=== PATIENT | male | born 1950 | race Caucasian/White ===

== ENCOUNTER → 2017-01-03 | Outpatient (CLI) | payer MEDICARE ==
[~2017-01-03] MED LIST: ACET-749 PO; CLC100 PO; DTR5 PO; LISI-788 PO; LOSA100T65 PO; METO25TA3 PO; MRLP17 PO; PARO20TA PO; VITAMIN D3 PO
== END | disposition home or self-care (01) ==
LOC: C.LABPBG 10:16
PROVIDERS: ATTEND Urology
DX: C61 Malignant neoplasm of prostate (principal)

== ENCOUNTER 2022-02-02 23:50 | Inpatient (IN) ==
--- NOTE | 2022-02-03 00:39 | Emergency Department Note ---
Impression & Plan Acute GI bleeding, [facility] NAME: DOREEN HALE AGE: 71 SEX: M ARRIVES VIA: Walk-In INFORMANT: Patient ED PROVIDER(S): Anayeli Leone DO CHIEF COMPLAINT: Dark stools; dizziness PLAN: Disposition: Admit to hospitalist Condition: Guarded MEDICAL DECISION MAKING: This is a 71-year-old male patient who developed dizziness upon standing and noted he had dark-colored stools. [facility] He had a significant bowel movement that was dark black in color. He was found to be anemic with a hemoglobin of 7.4. BUN was significantly elevated. Patient was bolused with IV normal saline solution and typed and crossed for 2 units of packed red blood cells. Patient's last colonoscopy was 5 years ago. He does have a history of diverticulitis but no other findings according to the patient. [facility] Nursing notes reviewed and agree with them. Vital Signs: reviewed and remarkable for hypotension Differential diagnosis: Upper GI bleeding; anemia; orthostatic hypotension ER treatment provided: IV normal saline bolus IV packed red blood cell transfusion Diagnostics interpreted by me: ECG: Normal sinus rhythm at a rate of 71 with flattened T waves in the inferior and lateral leads Cardiac Monitoring: Normal sinus rhythm at 70 Laboratory studies: See below HPI: 71/M arrives for evaluation of dizziness. Patient developed constipation earlier in the week for which he took stool softeners and Dulcolax. He finally had a bowel movement today which was dark in color. He also began to notice some dizziness upon standing. Patient had an episode of dark-colored stools approximately 3 years ago for which she did not seek medical treatment. He had a colonoscopy approximately 5 years ago but it was limited secondary to diverticulitis. ROS: See above HPI for pertinent positives & negatives. A total of 10 systems reviewed and were otherwise negative. PAST MEDICAL HISTORY:Hypertension, prostate cancer status post prostatectomy; diverticulitis PAST SURGICAL HISTORY:See Below FAMILY HISTORY:See Below SOCIAL HISTORY:Patient is HOME MEDICATIONS:See list ALLERGIES:None VITALS:See Below PHYSICAL EXAMINATION: HEENT: Head - normocephalic and atraumatic. Pupils are equal, round, and reactive to light. Extraocular eye muscles are intact, and sclera are anicteric. Nose - moist nasal mucosa without discharge. Mouth - moist buccal mucosa. Oropharynx is nonerythematous and there is no tonsillar exudate or edema noted. Neck: Supple; no cervical lymphadenopathy Heart: Regular rate and rhythm. There is a normal S1 and S2 with no murmurs, clicks, or gallops appreciated. Lungs: Clear to auscultation bilaterally with no wheezes, rales, or rhonchi. Abdomen: Soft, completely nontender, nondistended, with good bowel sounds. There are no palpable pulsatile masses or hepatosplenomegaly. There is no guarding, rigidity, or rebound noted. Extremities: No evidence of cyanosis, clubbing, or edema. There are easily palpable peripheral pulses. Skin: Pale, warm and dry with good turgor and no rashes. ED COURSE: Times/Reassessments: 0020: Patient was evaluated in room C1. A complete history and physical was performed. An IV lock was initiated and labs were drawn as above. An order was placed for continuous cardiac monitoring. The patient was in a normal sinus rhythm at a rate of 70. Patient was bolused with normal saline solution Patient was typed and crossed for 2 units of packed red blood cells. I discussed the case with the [facility] Hospitalist. Anayeli Leone DO Past Med/Surg History Medical History (Updated 02/03/22 @ 06:37 by Anayeli Leone DO) Depression Full code status GI bleed Hyperlipidemia Hypertension Social History Smoking Status: Former smoker Second Hand Exposure: No; Do You Dip or Chew Tobacco: Yes; Hx Substance Use: No Communication Ability: Effective Assurance Services Manager Health Care Required: No Beliefs That Will Affect Care: None Current Living Situation: Spouse and Family Feels Safe at Home: No Is there a partner from a previous relationship who is making you feel unsafe now?: No Any Concerns about Your Family Situation: No Would You Like to Speak to Someone About Your Situation: No Safety Concerns: Feels Safe At This Time Allergies Allergies Allergy/AdvReac Type Severity Reaction Status Date / Time No Known Allergies Allergy Unverified 11/02/15 05:54 Home Meds Home Medications Medication Instructions Recorded Confirmed LOSARTAN POTASSIUM (COZAAR) 100 mg PO QAM #0 tabs 10/18/15 02/03/22 PAROXETINE HCL (PAXIL) 20 mg PO QAM #0 tabs 10/18/15 02/03/22 Metoprolol Succ (Toprol Xl) 100 mg PO BID #30 tabs 11/02/15 02/03/22 (Toprol-Xl) Docusate Sodium 50 mg PO BID PRN Constipation 02/03/22 02/03/22 amlodipine 10 mg tablet 10 mg PO DAILY 02/03/22 02/03/22 ezetimibe 10 mg tablet 10 mg PO DAILY 02/03/22 02/03/22 hydrochlorothiazide 12.5 mg tablet 12.5 mg PO DAILY 02/03/22 02/03/22 rosuvastatin 20 mg tablet 20 mg PO DAILY 02/03/22 02/03/22 Results & Data (ED) Vital Signs Vital Signs - 24 hr 02/03/22 00:03 02/03/22 00:53 02/03/22 00:53 Temperature 37 C Temperature Source Temporal Artery Scan Pulse Rate 79 Pulse Rate [Apical] 74 Respiratory Rate 16 18 Respiratory Effort / Characteristics Non-Labored Spontaneous Non-Labored Spontaneous Respiratory Depth Normal Normal Respiratory Pattern Regular Blood Pressure 93/53 L Blood Pressure [Right Arm] 117/41 L Blood Pressure Mean 66 Blood Pressure Mean [Right Arm] 66 Blood Pressure Position [Right Arm] Sitting Pulse Oximetry 93 98 97 Oxygen Delivery Method Room Air Room Air Room Air Oxygen Flow Rate Sepsis Recent Fever Within 48 Hours No Sepsis New/Unexplained Change in Mental Status No Sepsis Action Taken by Nursing No Action Required 02/03/22 02:00 02/03/22 02:15 02/03/22 02:15 Temperature Temperature Source Pulse Rate Pulse Rate [Apical] 77 Respiratory Rate 18 Respiratory Effort / Characteristics Non-Labored Spontaneous Respiratory Depth Normal Respiratory Pattern Regular Blood Pressure Blood Pressure [Right Arm] 133/62 Blood Pressure Mean Blood Pressure Mean [Right Arm] 85 Blood Pressure Position [Right Arm] Sitting Pulse Oximetry 97 88 L 97 Oxygen Delivery Method Room Air Room Air Nasal Cannula Oxygen Flow Rate 2 Sepsis Recent Fever Within 48 Hours Sepsis New/Unexplained Change in Mental Status Sepsis Action Taken by Nursing 02/03/22 03:30 02/03/22 04:29 Temperature Temperature Source Pulse Rate 79 77 Pulse Rate [Apical] Respiratory Rate 20 20 Respiratory Effort / Characteristics Respiratory Depth Respiratory Pattern Blood Pressure 122/63 111/57 L Blood Pressure [Right Arm] Blood Pressure Mean 82 75 Blood Pressure Mean [Right Arm] Blood Pressure Position [Right Arm] Pulse Oximetry 96 98 Oxygen Delivery Method Nasal Cannula Oxygen Flow Rate 2 Sepsis Recent Fever Within 48 Hours Sepsis New/Unexplained Change in Mental Status Sepsis Action Taken by Nursing Laboratory Data Result diagrams: 02/03/22 00:28 02/03/22 00:28 Lab Results 02/03/22 02/03/22 02/03/22 Range/Units 00:28 00:28 00:28 WBC 15.89 H (4.8-10.8) K/ul RBC 2.59 L (4.63-6.08) M/uL Hgb 7.4 L (14.0-18.0) g/dl Hct 23.2 L (40.1-51.0) % MCV 89.6 (80.0-100.0) fL MCH 28.6 (25.0-34.0) pg MCHC 31.9 L (32.0-36.0) g/dL RDW Std Deviation 40.7 (36.4-46.3) fL RDW Coeff of Antwon 12.6 (11.5-14.5) % Plt Count 266 (130-400) K/uL MPV 11.7 (9.4-12.4) fL Immature Gran % (Auto) 2.2 % Neut % (Auto) 72.8 % Lymph % (Auto) 14.9 % [place] % (Auto) 7.7 % Eos % (Auto) 1.9 % Baso % (Auto) 0.5 % Neut # (Auto) 11.57 H (1.4-6.5) K/uL Lymph # (Auto) 2.37 (1.2-3.4) K/uL [place] # (Auto) 1.22 H (0.24-0.82) K/uL Eos # (Auto) 0.30 (0-0.50) K/uL Baso # (Auto) 0.08 (0-0.2) K/uL Immature Gran # (Auto) 0.35 H (0.00-0.02) K/uL RBC Morphology Unremarkable PT 10.9 (9.0-12.0) Seconds INR 1.0 (0.9-1.1) APTT 26.2 (21.0-31.0) Seconds PTT Ratio 1.0 Sodium 134 L (136-145) mmol/L Potassium 4.3 (3.5-5.1) mmol/L Chloride 103 (98-107) mmol/L Carbon Dioxide 22 (21-32) mmol/L Anion Gap 9 (3-11) BUN 97 H (6-23) mg/dl Creatinine 1.84 H (0.6-1.4) mg/dl Est Cr Clr Drug Dosing Not Reportable Est GFR ( Amer) 41.8 ml/min Est GFR (Non-Af Amer) 36.1 ml/min BUN/Creatinine Ratio 52.7 H (10-20) Glucose 111 H (70-99(Fasting)) mg/dl Calcium 9.2 (8.5-10.1) mg/dl Total Bilirubin 0.2 (0.2-1.0) mg/dl AST 19 (13-39) U/L ALT 13 (7-52) U/L Alkaline Phosphatase 50 (34-104) U/L Troponin I High Sens 6.4 (0-20) pg/ml Total Protein 6.7 (6.0-8.3) gm/dl Albumin 4.0 (3.4-5.0) gm/dl Globulin 2.7 (2.5-4.0) gm/dl Albumin/Globulin Ratio 1.5 (0.9-2) SARS-CoV-2, RNA, NAAT (NEGATIVE) Blood Type Antibody Screen Crossmatch 02/03/22 02/03/22 Range/Units 01:52 01:52 WBC (4.8-10.8) K/ul RBC (4.63-6.08) M/uL Hgb (14.0-18.0) g/dl Hct (40.1-51.0) % MCV (80.0-100.0) fL MCH (25.0-34.0) pg MCHC (32.0-36.0) g/dL RDW Std Deviation (36.4-46.3) fL RDW Coeff of Antwon (11.5-14.5) % Plt Count (130-400) K/uL MPV (9.4-12.4) fL Immature Gran % (Auto) % Neut % (Auto) % Lymph % (Auto) % [place] % (Auto) % Eos % (Auto) % Baso % (Auto) % Neut # (Auto) (1.4-6.5) K/uL Lymph # (Auto) (1.2-3.4) K/uL [place] # (Auto) (0.24-0.82) K/uL Eos # (Auto) (0-0.50) K/uL Baso # (Auto) (0-0.2) K/uL Immature Gran # (Auto) (0.00-0.02) K/uL RBC Morphology PT (9.0-12.0) Seconds INR (0.9-1.1) APTT (21.0-31.0) Seconds PTT Ratio Sodium (136-145) mmol/L Potassium (3.5-5.1) mmol/L Chloride (98-107) mmol/L Carbon Dioxide (21-32) mmol/L Anion Gap (3-11) BUN (6-23) mg/dl Creatinine (0.6-1.4) mg/dl Est Cr Clr Drug Dosing Est GFR ( Amer) ml/min Est GFR (Non-Af Amer) ml/min BUN/Creatinine Ratio (10-20) Glucose (70-99(Fasting)) mg/dl Calcium (8.5-10.1) mg/dl Total Bilirubin (0.2-1.0) mg/dl AST (13-39) U/L ALT (7-52) U/L Alkaline Phosphatase (34-104) U/L Troponin I High Sens (0-20) pg/ml Total Protein (6.0-8.3) gm/dl Albumin (3.4-5.0) gm/dl Globulin (2.5-4.0) gm/dl Albumin/Globulin Ratio (0.9-2) SARS-CoV-2, RNA, NAAT NEGATIVE (NEGATIVE) Blood Type O Positive Antibody Screen NEGATIVE Crossmatch See Detail Administered Medications Discontinued Medications Sodium Chloride (Nss) 500 mls @ 999 mls/hr IV .Q31M ONE Stop: 02/03/22 02:24 Last Infusion: 02/03/22 02:46 Dose: 0 mls/hr Documented By: KMJulienne Admin: 02/03/22 02:06 Dose: 999 mls/hr Documented By: TARSHA Discharge Plan Visit Data Chief Complaint: GI Bleed Stated Complaint: DIZZY,DARK STOOL ED Provider: Anayeli Leone Discharge Problem: Acute GI bleeding, Anemia Discharge Instructions Interventions: ED Discharge Assessment Last Done: 02/03/22 05:58 : Anemia Qualifiers: Other causes of anemia: acute posthemorrhagic
[2022-02-03 00:45] LABS: Basophils # (auto) 0.08 K/uL (0-0.2); Basophils % (auto) 0.5 %; Eosinophils % (auto) 1.9 %; Hematocrit (blood only) 23.2 % (40.1-51.0); Hemoglobin 7.4 g/dl (14.0-18.0); Immature Granulocytes # (auto) 0.35 K/uL (0.00-0.02); Immature Granulocytes % (auto) 2.2 %; Lymphocytes # (auto) 2.37 K/uL (1.2-3.4); Lymphocytes % (auto) 14.9 %; Mean Corpuscular Hemoglobin 28.6 pg (25.0-34.0); Mean Corpuscular Hgb Conc 31.9 g/dL (32.0-36.0); Mean Corpuscular Volume 89.6 fL (80.0-100.0); Mean Platelet Volume 11.7 fL (9.4-12.4); Monocytes # (auto) 1.22 K/uL (0.24-0.82); Monocytes % (auto) 7.7 %; Neutrophils # (auto) 11.57 K/uL (1.4-6.5); Neutrophils % (auto) 72.8 %; Platelet Count 266 K/uL (130-400); RDW Coefficient of Variation 12.6 % (11.5-14.5); RDW Standard Deviation 40.7 fL (36.4-46.3); Red Blood Count 2.59 M/uL (4.63-6.08); White Blood Count 15.89 K/ul (4.8-10.8)
[2022-02-03 00:57] LABS: Partial Thromboplastin Time 26.2 Seconds (21.0-31.0); Prothrombin Time 10.9 Seconds (9.0-12.0)
[2022-02-03 01:04] LABS: RBC Morphology Unremarkable
[2022-02-03 01:10] LABS: Alanine Aminotransferase 13 U/L (7-52); Albumin Globulin Ratio 1.5 (0.9-2); Alkaline Phosphatase 50 U/L (34-104); Anion Gap 9 (3-11); Aspartate Aminotransferase 19 U/L (13-39); BUN Creatinine Ratio 52.7 (10-20); Bilirubin,Total 0.2 mg/dl (0.2-1.0); Blood Urea Nitrogen 97 mg/dl (6-23); Calcium 9.2 mg/dl (8.5-10.1); Carbon Dioxide 22 mmol/L (21-32); Chloride 103 mmol/L (98-107); Est GFR (African American) 41.8 ml/min; Est GFR (Non-African American) 36.1 ml/min; Globulin 2.7 gm/dl (2.5-4.0); Glucose 111 mg/dl (70-99(Fasting)); Potassium 4.3 mmol/L (3.5-5.1); Sodium 134 mmol/L (136-145); Total Protein 6.7 gm/dl (6.0-8.3)
[2022-02-03] MEDS ORDERED: SODIUM CHLORIDE 0.9% 250 ML IV PRN (01:43)
[2022-02-03] MEDS ORDERED: SODIUM CHLORIDE 0.9% 500 ML IV ONE (01:54)
[2022-02-03 02:32] LABS: Troponin I High Sensitivity 6.4 pg/ml (0-20)
--- NOTE | 2022-02-03 03:58 | History & Physical Report ---
Date of Service February 03, 2022 Assessment & Plan (1) GI bleed: Plan: Patient is a 71 yo male with PMHx of HTN, hyperlipidemia, depression, prostate cancer s/p prostatectomy, and diverticulitis admitted to [facility] on 02/03/22 with GI bleed. GI Bleed - Symptoms started on 02/02/22 with melena; associated lightheadedness - Hgb on admission 7.4 - Patient w/o hx of chronic anemia - Patient typed and screened - Consent for blood transfusion obtained by ED physician - Awaiting PRBCs for transfusion; no hx of prior blood transfusion - Leukocytosis with WBC 15.89 on admission. Afebrile. Not tachycardic. No sign of infection at this time. - Start PPI 40mg IV BID - CBC qAM and H&H q6h - NPO - Consult GI GINNA - Cr 1.84 on admission - Suspect secondary to hypovolemia due to anemia and poor po intake - IVF with LR at 150 cc/hr - BMP qAM Alcohol Use - Patient drinks 5-6 beers per night - No hx of withdrawal; longest period of alcohol abstinence is 2-3 days in the past several years - Will initiate AWSS at risk protocol Heart murmur - Patient reports no known hx of heart murmur but does note that he had an echo within the past 6 months at [place] - Attempt to obtain outside records in AM Hypertension - Home meds amlodipine, HCTZ, losartan, and metoprolol - Home medications held on admission Hyperlipidemia - Home meds ezetimibe and rosuvastatin - Home medications held on admission Depression - On paroxetine at home; held on admission COVID 19 negative test on admission Dispo: Admit to tele FENGI: NPO. IVF with LR at 150 cc/hr DVT ppx: Held in the setting of GI bleed Code status: FULL CODE (2) Hypertension: (3) Hyperlipidemia: (4) Depression: (5) Full code status: (6) Lab test negative for COVID-19 virus: History of Present Illness Primary Care Provider: Aron Webber DO Patient is a 71 yo male with PMHx of HTN, hyperlipidemia, depression, prostate cancer s/p prostatectomy, and diverticulitis who presented to the [facility] ER on 02/03/22 with complaint of dizziness and melena. Patient states that on Sunday night/Sunday morning (about 3 days ago), patient had a gradual onset of dizziness described as lightheadedness/near-syncope sensation. This symptom has been exacerbated with positional changes and standing. He has also been experiencing constipation x3 days for which he started taking Dulcolax BID. Over the past 1-2 days, he has had decreased appetite. Last night around 10:30 pm (about 2 hours prior to arrival to the ER), patient had an episode of melena. He has had multiple more episodes of melena since. Patient notes that he had a similar episode of melena several years ago but did not seek medical evaluation at that time and the melena resolved after 3-4 days. He had a colonoscopy about 5 years ago for diverticulitis; patient did not have f/u colonoscopy. He denies headache, CP, change in SOB from baseline (which he attributes to metoprolol use), abdominal pain, nausea, vomiting, leg pain, or leg swelling. Patient does chew snuff daily. Quit smoking cigarettes about 11-12 years ago; has [id number] hx. Current alcohol use; drinks 5-6 beers nightly. No hx of alcohol withdrawal; longest duration w/o alcohol is 2-3 days. In the ER, patient was found to have Hgb of 7.4. Unknown baseline Hgb but patient denies hx of chronic anemia. Patient was typed and screened; awaiting blood transfusion. No hx of prior blood transfusion. Labs were also notable for leukocytosis WBC 15.89. GINNA with Cr of 1.89. Patient denies hx of elevated Cr or CKD. Allergies Allergy/AdvReac Type Severity Reaction Status Date / Time No Known Allergies Allergy Unverified 02/03/22 13:35 Home Medications Medication Instructions Recorded Confirmed Type LOSARTAN POTASSIUM (COZAAR) 100 mg PO QAM #0 tabs 10/18/15 02/03/22 History PAROXETINE HCL (PAXIL) 20 mg PO QAM #0 tabs 10/18/15 02/03/22 History Metoprolol Succ (Toprol Xl) 100 mg PO BID #30 tabs 11/02/15 02/03/22 History (Toprol-Xl) Docusate Sodium 50 mg PO BID PRN Constipation 02/03/22 02/03/22 History amlodipine 10 mg tablet 10 mg PO DAILY 02/03/22 02/03/22 History ezetimibe 10 mg tablet 10 mg PO DAILY 02/03/22 02/03/22 History hydrochlorothiazide 12.5 mg tablet 12.5 mg PO DAILY 02/03/22 02/03/22 History rosuvastatin 20 mg tablet 20 mg PO DAILY 02/03/22 02/03/22 History Past Med/Surg History Medical History (Updated 02/03/22 @ 10:08 by DEBBIE Rocha) Depression Encounter for pre-operative examination Full code status GI bleed Hyperlipidemia Hypertension Social History Smoking Status: Former smoker Second Hand Exposure: No; Do You Dip or Chew Tobacco: Yes; Hx Substance Use: No Communication Ability: Effective Engrosser Required: No Beliefs That Will Affect Care: None Current Living Situation: Spouse and Family Feels Safe at Home: Yes Safety Concerns: Feels Safe At This Time Assistive Devices: None Review of Systems Review of Systems: See HPI Physical Exam Physical Exam: GENERAL: No acute distress. Well developed and well nourished. Vital signs reviewed as above. EYES: PERRLA. EOMI. Anicteric sclerae. HENT: Moist mucous membranes. No pharyngeal erythema or exudates. RESPIRATORY: Clear to auscultation bilaterally. No wheezing, rales, or rhonchi. CARDIOVASCULAR: Regular rate and rhythm. + murmur. No JVD. ABDOMEN: Soft, non-tender and non-distended. Normal bowel sounds. EXTREMITIES: No edema. Non-tender. SKIN: Warm, dry. + slight pallor. NEUROLOGIC: A/O x3. Normal speech. No focal neurological deficits. CN II-XII grossly intact. 5/5 strength in BUE and BLE. PSYCHIATRIC: Cooperative. Appropriate mood and affect. Results & Data Results & Data ([facility]) Vital Signs (Past 12 Hours) Vital Signs Temp Pulse Pulse Resp BP BP Pulse Ox 02/03/22 03:30 79 20 122/63 96 02/03/22 02:15 97 02/03/22 02:15 88 L 02/03/22 02:00 77 18 133/62 97 02/03/22 00:53 97 02/03/22 00:53 74 18 117/41 L 98 02/03/22 00:03 37 C 79 16 93/53 L 93 O2 Del Method O2 Flow Rate 02/03/22 03:30 Nasal Cannula 2 02/03/22 02:15 Nasal Cannula 2 02/03/22 02:15 Room Air 02/03/22 02:00 Room Air 02/03/22 00:53 Room Air 02/03/22 00:53 Room Air 02/03/22 00:03 Room Air Laboratory Results 02/03/22 02/03/22 02/03/22 Range/Units 01:52 01:52 00:28 WBC (4.8-10.8) K/ul RBC (4.63-6.08) M/uL Hgb (14.0-18.0) g/dl Hct (40.1-51.0) % MCV (80.0-100.0) fL MCH (25.0-34.0) pg MCHC (32.0-36.0) g/dL RDW Std Deviation (36.4-46.3) fL RDW Coeff of Antwon (11.5-14.5) % Plt Count (130-400) K/uL MPV (9.4-12.4) fL Immature Gran % (Auto) % Neut % (Auto) % Lymph % (Auto) % [place] % (Auto) % Eos % (Auto) % Baso % (Auto) % Neut # (Auto) (1.4-6.5) K/uL Lymph # (Auto) (1.2-3.4) K/uL [place] # (Auto) (0.24-0.82) K/uL Eos # (Auto) (0-0.50) K/uL Baso # (Auto) (0-0.2) K/uL Immature Gran # (Auto) (0.00-0.02) K/uL RBC Morphology PT (9.0-12.0) Seconds INR (0.9-1.1) APTT (21.0-31.0) Seconds PTT Ratio Sodium 134 L (136-145) mmol/L Potassium 4.3 (3.5-5.1) mmol/L Chloride 103 (98-107) mmol/L Carbon Dioxide 22 (21-32) mmol/L Anion Gap 9 (3-11) BUN 97 H (6-23) mg/dl Creatinine 1.84 H (0.6-1.4) mg/dl Est Cr Clr Drug Dosing Not Reportable Est GFR ( Amer) 41.8 ml/min Est GFR (Non-Af Amer) 36.1 ml/min BUN/Creatinine Ratio 52.7 H (10-20) Glucose 111 H (70-99(Fasting)) mg/dl Calcium 9.2 (8.5-10.1) mg/dl Total Bilirubin 0.2 (0.2-1.0) mg/dl AST 19 (13-39) U/L ALT 13 (7-52) U/L Alkaline Phosphatase 50 (34-104) U/L Troponin I High Sens 6.4 (0-20) pg/ml Total Protein 6.7 (6.0-8.3) gm/dl Albumin 4.0 (3.4-5.0) gm/dl Globulin 2.7 (2.5-4.0) gm/dl Albumin/Globulin Ratio 1.5 (0.9-2) SARS-CoV-2, RNA, NAAT NEGATIVE (NEGATIVE) Blood Type Pending Antibody Screen Pending Crossmatch See Detail 02/03/22 02/03/22 Range/Units 00:28 00:28 WBC 15.89 H (4.8-10.8) K/ul RBC 2.59 L (4.63-6.08) M/uL Hgb 7.4 L (14.0-18.0) g/dl Hct 23.2 L (40.1-51.0) % MCV 89.6 (80.0-100.0) fL MCH 28.6 (25.0-34.0) pg MCHC 31.9 L (32.0-36.0) g/dL RDW Std Deviation 40.7 (36.4-46.3) fL RDW Coeff of Antwon 12.6 (11.5-14.5) % Plt Count 266 (130-400) K/uL MPV 11.7 (9.4-12.4) fL Immature Gran % (Auto) 2.2 % Neut % (Auto) 72.8 % Lymph % (Auto) 14.9 % [place] % (Auto) 7.7 % Eos % (Auto) 1.9 % Baso % (Auto) 0.5 % Neut # (Auto) 11.57 H (1.4-6.5) K/uL Lymph # (Auto) 2.37 (1.2-3.4) K/uL [place] # (Auto) 1.22 H (0.24-0.82) K/uL Eos # (Auto) 0.30 (0-0.50) K/uL Baso # (Auto) 0.08 (0-0.2) K/uL Immature Gran # (Auto) 0.35 H (0.00-0.02) K/uL RBC Morphology Unremarkable PT 10.9 (9.0-12.0) Seconds INR 1.0 (0.9-1.1) APTT 26.2 (21.0-31.0) Seconds PTT Ratio 1.0 Sodium (136-145) mmol/L Potassium (3.5-5.1) mmol/L Chloride (98-107) mmol/L Carbon Dioxide (21-32) mmol/L Anion Gap (3-11) BUN (6-23) mg/dl Creatinine (0.6-1.4) mg/dl Est Cr Clr Drug Dosing Est GFR ( Amer) ml/min Est GFR (Non-Af Amer) ml/min BUN/Creatinine Ratio (10-20) Glucose (70-99(Fasting)) mg/dl Calcium (8.5-10.1) mg/dl Total Bilirubin (0.2-1.0) mg/dl AST (13-39) U/L ALT (7-52) U/L Alkaline Phosphatase (34-104) U/L Troponin I High Sens (0-20) pg/ml Total Protein (6.0-8.3) gm/dl Albumin (3.4-5.0) gm/dl Globulin (2.5-4.0) gm/dl Albumin/Globulin Ratio (0.9-2) SARS-CoV-2, RNA, NAAT (NEGATIVE) Blood Type Antibody Screen Crossmatch Supervising Physician Co-Signing Physician Notes Attending addendum: I have physically seen this patient, have supervised the medical residents activities, and agree with the H&P unless as otherwise noted. Assessment and Plan: GI bleed- NPO Hemoglobin 7.4 on admission Noted to have melena, with associated lightheadedness To receive 2 units PRBCs from the ED Pantoprazole 40 mg IV twice daily H&H every 6 hours No known history of varices, but does have history of significant alcohol use Consult gastroenterology Renal insufficiency- Creatinine 1.84 on admission LR at 150 mL/h Repeat BMP in a.m. Alcohol use- Significant alcohol use averaging 5-6 beers per night Placed on AWSS protocol No suggestion of variceal bleeding Hypertension- Hold all medications while in intermediate. Blood pressure is relatively low due to bleeding/anemia Remaining orders and notations as noted Resident Activity Tracking Resident Involvement: Resident Care Provided Care Provided: Adult Hospital Medicine
[2022-02-03] MEDS ORDERED: ONDANSETRON INJ 2 MG/ML 2 ML VIAL IV PRN (06:13)
[2022-02-03] MEDS ORDERED: LORazepam 1 MG TAB PO PRN (06:13)
[2022-02-03] MEDS: PANTOprazole 40 MG in SYRINGE 0 ML IV SCH ×2 (08:06→20:41)
--- NOTE | 2022-02-03 08:36 | Anesthesiology Consultation ---
Date of Service February 03, 2022 Assessment & Plan (1) Encounter for pre-operative examination: Chart Review Chart Review: Acceptable Risk for Surgery, Patient NOT seen in Pre Admission Testing and administrative assistant data entry initiated Consults Requested none History Surgery Operation Date: 02/03/22 16:30 Proposed Procedures p Esophagogastroduodenoscopy Dr Nava - Khloe Nava MD Height/Weight Height: 5 ft 11 in Weight: 104 kg Allergies Allergy/AdvReac Type Severity Reaction Status Date / Time No Known Allergies Allergy Unverified 11/02/15 05:54 Medications Home Medications Medication Instructions Recorded Confirmed Last Taken LOSARTAN POTASSIUM (COZAAR) 100 mg PO QAM #0 tabs 10/18/15 02/03/22 Unknown PAROXETINE HCL (PAXIL) 20 mg PO QAM #0 tabs 10/18/15 02/03/22 Unknown Metoprolol Succ (Toprol Xl) 100 mg PO BID #30 tabs 11/02/15 02/03/22 Unknown (Toprol-Xl) Docusate Sodium 50 mg PO BID PRN Constipation 02/03/22 02/03/22 Unknown amlodipine 10 mg tablet 10 mg PO DAILY 02/03/22 02/03/22 Unknown ezetimibe 10 mg tablet 10 mg PO DAILY 02/03/22 02/03/22 Unknown hydrochlorothiazide 12.5 mg tablet 12.5 mg PO DAILY 02/03/22 02/03/22 Unknown rosuvastatin 20 mg tablet 20 mg PO DAILY 02/03/22 02/03/22 Unknown Active Medications Generic Name Dose Route Start Last Admin Trade Name Freq PRN Reason Stop Dose Admin Pantoprazole Sodium 40 mg/ 10 mls @ 5 mls/min 02/03/22 09:00 02/03/22 08:06 Syringe IV 03/05/22 08:59 5 mls/min BID LACI Administration Past Medical History Medical History (Updated 02/03/22 @ 08:35 by Luis Alfredo Santamaria MD) Depression Encounter for pre-operative examination Full code status GI bleed Hyperlipidemia Hypertension Social History Smoking Status: Former smoker tobacco type: smokeless tobacco Do You Dip or Chew Tobacco: Yes Alcohol type: beer alcohol intake frequency: 3 or more drinks per day Alcohol Intake Frequency Comment: 5-6 beers per day Hx Substance Use: No Physical Exam Vital Signs Last Vital Signs Temp 36.8 C 02/03/22 07:40 Pulse 84 02/03/22 07:40 Resp 20 02/03/22 07:40 BP 129/70 02/03/22 07:40 Pulse Ox 94 02/03/22 07:40 O2 Del Method 02/03/22 06:23 O2 Flow Rate 2 02/03/22 07:40 Testing Laboratory Results 02/03/22 00:28 02/03/22 00:28 PT 10.9 Seconds (9.0-12.0) 02/03/22 00:28 INR 1.0 (0.9-1.1) 02/03/22 00:28 APTT 26.2 Seconds (21.0-31.0) 02/03/22 00:28 Blood Type O Positive 02/03/22 01:52 Antibody Screen NEGATIVE 02/03/22 01:52 Electrocardiogram Date: 02/03/2224-Jan-2022 00:51:50 [facility]-EDSTAT ROUTINE RETRIEVAL Normal sinus rhythm Nonspe cific T wave abnormality Abnormal ECG When compared with ECG of 18-OCT-2015 14:03, Nonspecific T wave abnormality now evident in Anterolateral leads
--- NOTE | 2022-02-03 09:56 | Gastrointestinal Consultation ---
Date of Consultation February 03, 2022 Assessment & Plan (1) Melena: Differentials considered include gastritis, duodenitis, ulcer dx. He does drink increased amts of alcohol but his platelets are in the normal range, arguing against cirrhosis/portal HTN. eGFR is 41, so likely has some anemia of chronic dx contributing. Plan Receiving IV PPI BID which should be adequate as he doesn't seem to be continuing to pass melena. IV fluids. Agree w holding diuretics, BP meds until resolved. EGD today by Dr. Nava. Further recommendations to follow EGD. Supervising Physician Co-Signing Physician Notes I performed a history and physical examination of the patient today, including specifically on physical exam - soft abdomen. I have discussed the patient's management with the advanced practitioner. Please refer to the nurse practitioner's note for the documented findings and plan of care. EGD today. IV PPI. Patient was explained in detail regarding risks, benefits, limitations and alternatives of the above endoscopic procedure. Risks of intravenous sedation used for procedure were also explained. Risks include, but not limited to perforation, bleeding, infection, respiratory distress, cardiac arrest and . Patient is also aware about the possibility of missed lesion. Patient's questions were answered. The patient verbalized understanding the information and agreed to undergo the procedure. History of Present Illness Reason for Consultation: GI Bleed Requesting Physician: Mercedes Segura Attending Physician: Ravinder Yun MD History of Present Illness Mr. Karine Monahan is a 71 yr old male pt of Dr. Webber w a hx of HTN, hyperlipidemia, depression, prostate cancer s/p prostatectomy, diverticulitis and chronic anemia who presented to [facility] ED late yesterday for melena. Hb on arrival 7.4, BUN 97, but Cr is also elevated at 1.8. Unfortunately, we don't have prior labs and pt isn't aware what his baseline labs are. He reports having some constipation, bloating and epigastric burning on and Sun then yesterday passed 2 loose black BMs. He felt a little lightheaded/dizzy at that time which has resolved since arrival here. He hasn't had any N/V and hasn't passed a BM since arrival here. He received one unit of RBC and repeat labs are pending. He is awake, alert, oriented, hemodynamically stable. He is not on any antiplatelet/anticoagulants and he denies any recent NSAID use. He admits to drinking 5-6 beers/night. He recall a prior EGD 5-6 yr ago w duodenitis which he was under the understand meant an ulcer (I explained the difference). He denies any recent reflux symptoms and hadn't had epigastric burning prior to 2 days ago. He describes that burning as a mild discomfort. Allergies Allergy/AdvReac Type Severity Reaction Status Date / Time No Known Allergies Allergy Unverified 11/02/15 05:54 Home Medications Medication Instructions Recorded Confirmed Type LOSARTAN POTASSIUM (COZAAR) 100 mg PO QAM #0 tabs 10/18/15 02/03/22 History PAROXETINE HCL (PAXIL) 20 mg PO QAM #0 tabs 10/18/15 02/03/22 History Metoprolol Succ (Toprol Xl) 100 mg PO BID #30 tabs 11/02/15 02/03/22 History (Toprol-Xl) Docusate Sodium 50 mg PO BID PRN Constipation 02/03/22 02/03/22 History amlodipine 10 mg tablet 10 mg PO DAILY 02/03/22 02/03/22 History ezetimibe 10 mg tablet 10 mg PO DAILY 02/03/22 02/03/22 History hydrochlorothiazide 12.5 mg tablet 12.5 mg PO DAILY 02/03/22 02/03/22 History rosuvastatin 20 mg tablet 20 mg PO DAILY 02/03/22 02/03/22 History Patient History Medical History (Updated 02/03/22 @ 10:08 by DEBBIE Rocha) Depression Encounter for pre-operative examination Full code status GI bleed Hyperlipidemia Hypertension Social History Smoking Status: Former smoker Second Hand Exposure: No; Do You Dip or Chew Tobacco: Yes; Hx Substance Use: No Communication Ability: Effective Dba Required: No Beliefs That Will Affect Care: None Current Living Situation: Spouse and Family Feels Safe at Home: Yes Safety Concerns: Feels Safe At This Time Assistive Devices: None Review of Systems Review of Systems: ROS: Gen: Denies weakness, fevers, weight loss Eyes: No eye redness, or pain, no recent vision changes Resp: No SOB, no cough Cardio: No palpitations/irregular beats, no chest pain GI: As per HPI, otherwise (-) : Denies pain on urination Skin: No jaundice, itching or new rashes Physical Exam Constitutional: WD/WN, vitals as above Eyes: PERRL, conjunctivae normal, anicteric sclerae ENMT: external ear and nose normal, oropharynx normal Neck: trachea midline, no thyromegaly Respiratory: normal respiratory effort, lungs clear to auscultation Cardiovascular: RRR, no murmur, no edema Gastrointestinal (Abdomen): Inspection/Auscultation: abdomen normal to inspection and normal bowel sounds; abdomen not distended Percussion/Palpation: + abdomen tender (mild epigastric tenderness) and abdomen soft Skin: no rashes, warm and dry Neurologic: PERRL, EOMI, accommodation nl, no face palsy, no dysarthria Psychiatric: A+Ox3, euthymic affect Lymphatic: no cervical or axillary lymphadenopathy Results & Data ([facility]) Vital Signs (Past 12 Hours) Vital Signs Temp Pulse Pulse Resp BP BP Pulse Ox 02/03/22 09:45 36.9 C 79 16 123/66 93 02/03/22 09:03 02/03/22 09:16 36.9 C 77 18 135/67 91 02/03/22 09:01 36.8 C 79 18 128/67 92 02/03/22 08:43 36.8 C 80 16 143/70 H 94 02/03/22 08:40 36.7 C 83 19 138/73 96 02/03/22 07:40 36.8 C 84 20 129/70 94 02/03/22 06:40 36.8 C 84 20 129/70 94 02/03/22 06:10 37.5 C 83 20 109/61 93 02/03/22 06:47 37.5 C 84 20 109/61 02/03/22 06:23 37.5 C 80 22 137/65 93 02/03/22 06:13 37.5 C 80 22 137/65 92 02/03/22 05:55 36.8 C 82 18 98/45 L 98 02/03/22 05:38 37.2 C 78 24 114/62 97 02/03/22 05:00 77 24 121/66 97 02/03/22 04:29 77 20 111/57 L 98 02/03/22 03:30 79 20 122/63 96 02/03/22 02:15 97 02/03/22 02:15 88 L 02/03/22 02:00 77 18 133/62 97 02/03/22 00:53 97 02/03/22 00:53 74 18 117/41 L 98 02/03/22 00:03 37 C 79 16 93/53 L 93 O2 Del Method O2 Flow Rate 02/03/22 09:45 02/03/22 09:03 Nasal Cannula 2 02/03/22 09:16 02/03/22 09:01 02/03/22 08:43 02/03/22 08:40 02/03/22 07:40 2 02/03/22 06:40 2 02/03/22 06:10 2 02/03/22 06:47 02/03/22 06:23 Nasal Cannula 2 02/03/22 06:13 Nasal Cannula 2 02/03/22 05:55 2 02/03/22 05:38 2 02/03/22 05:00 02/03/22 04:29 02/03/22 03:30 Nasal Cannula 2 02/03/22 02:15 Nasal Cannula 2 02/03/22 02:15 Room Air 02/03/22 02:00 Room Air 02/03/22 00:53 Room Air 02/03/22 00:53 Room Air 02/03/22 00:03 Room Air Laboratory Results WBC 15, Hb 7, Hct 23, Plts 266, Na 134, K 4.3, BUN 97, Cr 1.84, glucose 111.
--- NOTE | 2022-02-03 12:59 | Hospitalist Progress Note ---
Date of Service February 03, 2022 Assessment & Plan (1) GI bleed: Plan: Patient is a 71 yo male with PMHx of HTN, hyperlipidemia, depression, prostate cancer s/p prostatectomy, and diverticulitis admitted to [facility] on 02/03/22 with GI bleed. Acute upper gastrointestinal hemorrhage - Likely due to gastritis-induced injury from chronic alcohol and tobacco use - Hgb 7.4 on admission, 2u pRBC ordered and will recheck Hgb - GI consulted- pt scheduled for upper endoscopy today - Pt remains hemodynamically stable - Continue pantoprazole 40 mg IV BID, IVF - Trend H+H, CBC - Education provided to pt about importance of reducing alcohol/tobacco consumption to reduce GI bleed risk in future GINNA - Cr 1.84 on admission - Suspect pre-renal secondary to hypovolemia due to GI bleed and poor oral intake - IVF with LR at 150 cc/hr - Trend BMP Alcohol use disorder - Patient drinks 5-6 beers per night - No hx of withdrawal; longest period of alcohol abstinence is 2-3 days in the past several years - Last known drink at 8:30 PM on 02/02 - Pt does not appear to be in withdrawal at this time - AWSS protocol Hypertension - Home meds amlodipine, HCTZ, losartan, and metoprolol - Home medications held on admission Hyperlipidemia - Home medications ezetimibe and rosuvastatin - Home medications held on admission Depression - On paroxetine at home; held on admission due to possible GI side effects Dispo: Medical/surgical with telemetry FENGI: NPO. IVF with LR at 150 cc/hr DVT ppx: Held in the setting of GI bleed Code: Full (2) Hypertension: (3) Hyperlipidemia: (4) Depression: (5) Full code status: (6) Lab test negative for COVID-19 virus: Admission and Anticipated Discharge Date Admission Date: February 03, 2022 Supervising Physician Co-Signing Physician Notes I personally examined the patient and verified all cain points of history and exam, discussed case, and agree with decision making with Dr Loera. Seen in follow-up from early a.m. admit. Seen after EGD. Eating regular food without any pain discomfort nausea or vomiting. Feels pretty well overall. Vitals noted, in general he is awake and alert pleasant no distress. HEENT normocephalic atraumatic mucous membranes moist. Breathing unlabored no accessory muscle use good effort. Skin shows no rashes no pallor or icterus. Neuro without focal deficits. Peptic ulcer disease with acute blood loss anemia and subsequent acute renal insufficiencyoverall now more stable, is status post 2 units packed red blood cells for his hemoglobin, GINNA and fatigue, as well as the concern that he had ongoing bleeding. Now post EGD showing ulcer no longer bleedingdiet is regular. Continue twice daily PPI. Is not taking any NSAIDs or aspirin, does drink about a sixpack a day and chews tobaccodiscussed these as the main risks. He felt like it would probably be easier to quit drinking and chewing. He does not remember, nor does his family, the last time he really went more than a short period of time without any alcoholobserve into tomorrow both for his bleeding and hemoglobin/hemodynamics and renal failure, as well as to ensure he does not start to show any alcohol withdrawal that would need to be treated. Otherwise as above Subjective No acute events overnight. Pt was receiving blood transfusion as I evaluated him. He reported feeling well, improved from his condition over the past several days. Does report some residual fatigue. Denies any chest pain, dyspnea, lightheadedness. Pt is aware he will get endoscopy. He reported drinking 5-6 beers nightly and chewing tobacco daily- understands this may have contributed to his GI bleed. He denies any withdrawal symptoms or cravings at present. Review of Systems Review of Systems: Per subjective Physical Exam Constitutional: WD/WN, vitals as above Mild pallor with slightly dry mucous membranes Eyes: PERRL, conjunctivae normal, anicteric sclerae ENMT: external ear and nose normal, oropharynx normal Neck: trachea midline, no thyromegaly Respiratory: normal respiratory effort, lungs clear to auscultation Cardiovascular: RRR, no murmur, no edema Gastrointestinal (Abdomen): Inspection/Auscultation: abdomen normal to inspection and normal bowel sounds; abdomen not distended Percussion/Palpation: abdomen soft; abdomen nontender Skin: no rashes, warm and dry Neurologic: PERRL, EOMI, accommodation nl, no face palsy, no dysarthria Psychiatric: A+Ox3, euthymic affect Lymphatic: no cervical or axillary lymphadenopathy Results & Data Results & Data ([facility]) Vital Signs (Past 12 Hours) Vital Signs Temp Pulse Pulse Resp BP BP Pulse Ox 02/03/22 11:46 37.0 C 78 19 129/68 90 02/03/22 10:46 37.1 C 76 19 116/64 91 02/03/22 09:45 36.9 C 79 16 123/66 93 02/03/22 09:03 02/03/22 09:16 36.9 C 77 18 135/67 91 02/03/22 09:01 36.8 C 79 18 128/67 92 02/03/22 08:43 36.8 C 80 16 143/70 H 94 02/03/22 08:40 36.7 C 83 19 138/73 96 02/03/22 07:40 36.8 C 84 20 129/70 94 02/03/22 06:40 36.8 C 84 20 129/70 94 02/03/22 06:10 37.5 C 83 20 109/61 93 02/03/22 06:47 37.5 C 84 20 109/61 02/03/22 06:23 37.5 C 80 22 137/65 93 02/03/22 06:13 37.5 C 80 22 137/65 92 02/03/22 05:55 36.8 C 82 18 98/45 L 98 02/03/22 05:38 37.2 C 78 24 114/62 97 02/03/22 05:00 77 24 121/66 97 02/03/22 04:29 77 20 111/57 L 98 02/03/22 03:30 79 20 122/63 96 02/03/22 02:15 97 02/03/22 02:15 88 L 02/03/22 02:00 77 18 133/62 97 02/03/22 00:53 97 02/03/22 00:53 74 18 117/41 L 98 O2 Del Method O2 Flow Rate 02/03/22 11:46 02/03/22 10:46 02/03/22 09:45 02/03/22 09:03 Nasal Cannula 2 02/03/22 09:16 02/03/22 09:01 02/03/22 08:43 02/03/22 08:40 02/03/22 07:40 2 02/03/22 06:40 2 02/03/22 06:10 2 02/03/22 06:47 02/03/22 06:23 Nasal Cannula 2 02/03/22 06:13 Nasal Cannula 2 02/03/22 05:55 2 02/03/22 05:38 2 02/03/22 05:00 02/03/22 04:29 02/03/22 03:30 Nasal Cannula 2 02/03/22 02:15 Nasal Cannula 2 02/03/22 02:15 Room Air 02/03/22 02:00 Room Air 02/03/22 00:53 Room Air 02/03/22 00:53 Room Air Resident Activity Tracking Resident Involvement: Resident Care Provided Care Provided: Adult Hospital Medicine
[2022-02-03 13:06] LABS: Hematocrit (blood only) 26.5 % (40.1-51.0); Hemoglobin 8.8 g/dl (14.0-18.0)
[2022-02-03] MEDS ORDERED: PROPOFOL IV EMULSION 10 MG/ML 20 ML VIAL IV ONE (13:50)
[2022-02-03] MEDS ORDERED: LIDOCAINE 2% MPF LOCAL 5 ML VIAL INFIL ONE (13:50)
--- NOTE | 2022-02-03 14:05 | GI REPORT ---
Patient Name: Vijay Monahan Procedure Date: 02/03/2022 1:50 PM Date of : 1950 Admit Type: Inpatient Age: 71 Gender: Male Attending MD: Khloe Nava MD Procedure: Upper GI endoscopy Providers: Khloe Nava MD Referring MD: Jose L Loera Md Indications: Anemia Medicines: Propofol per Anesthesia Complications: No immediate complications. Estimated Blood Loss: Estimated blood loss: none. Procedure: Pre-Anesthesia Assessment: - Prior to the procedure, a History and Physical was performed, and patient medications, allergies and sensitivities were reviewed. The patient's tolerance of previous anesthesia was reviewed. - The risks and benefits of the procedure and the sedation options and risks were discussed with the patient. All questions were answered and informed consent was obtained. - Patient identification and proposed procedure were verified prior to the procedure by the physician and the nurse. The procedure was verified in the procedure room. - Pre-procedure physical examination revealed no contraindications to sedation. After obtaining informed consent, the endoscope was passed under direct vision. Throughout the procedure, the patient's blood pressure, pulse, and oxygen saturations were monitored continuously. The Endoscope was introduced through the mouth, and advanced to the second part of duodenum. The upper GI endoscopy was accomplished without difficulty. The patient tolerated the procedure well. Findings: The examined esophagus was normal. A medium-sized hiatal hernia was present. One non-bleeding cratered gastric ulcer with no stigmata of bleeding was found in the gastric antrum. The lesion was 10 mm in largest dimension. The duodenal bulb and second portion of the duodenum were normal. Impression: - Normal esophagus. - Medium-sized hiatal hernia. - Non-bleeding gastric ulcer with no stigmata of bleeding. - Normal duodenal bulb and second portion of the duodenum. - No specimens collected. Recommendation: - Return patient to [facility] [place] for ongoing care. - Advance diet as tolerated. - No aspirin, ibuprofen, naproxen, or other non-steroidal anti-inflammatory drugs. - Use a proton pump inhibitor PO BID for 3 months. - Repeat upper endoscopy in 3 months to check healing. - Colonoscopy as OP. - Recall GI if needed. Khloe Nava MD 02/03/2022 2:05:44 PM This report has been signed electronically. Note Initiated On: 02/03/2022 1:50 PM Number of Addenda: 0 I attest to the content of the Intraoperative Record and orders documented therein, exceptions below {[id number]}
--- NOTE | 2022-02-03 14:18 | Anesthesiology Progress Note ---
Date of Service February 03, 2022 Anesthesia Post Procedure Vital Signs Vital Signs: Temp Pulse Pulse Resp BP BP Pulse Ox 02/03/22 14:08 76 16 88/54 L 92 02/03/22 13:36 37.6 C H 80 16 168/74 H 92 02/03/22 11:46 37.0 C 78 19 129/68 90 02/03/22 10:46 37.1 C 76 19 116/64 91 02/03/22 09:45 36.9 C 79 16 123/66 93 02/03/22 09:03 02/03/22 09:16 36.9 C 77 18 135/67 91 02/03/22 09:01 36.8 C 79 18 128/67 92 02/03/22 08:43 36.8 C 80 16 143/70 H 94 02/03/22 08:40 36.7 C 83 19 138/73 96 02/03/22 07:40 36.8 C 84 20 129/70 94 02/03/22 06:40 36.8 C 84 20 129/70 94 02/03/22 06:10 37.5 C 83 20 109/61 93 02/03/22 06:47 37.5 C 84 20 109/61 02/03/22 06:23 37.5 C 80 22 137/65 93 02/03/22 06:13 37.5 C 80 22 137/65 92 02/03/22 05:55 36.8 C 82 18 98/45 L 98 02/03/22 05:38 37.2 C 78 24 114/62 97 02/03/22 05:00 77 24 121/66 97 02/03/22 04:29 77 20 111/57 L 98 02/03/22 03:30 79 20 122/63 96 02/03/22 02:15 97 02/03/22 02:15 88 L 02/03/22 02:00 77 18 133/62 97 02/03/22 00:53 97 02/03/22 00:53 74 18 117/41 L 98 02/03/22 00:03 37 C 79 16 93/53 L 93 O2 Del Method O2 Flow Rate 02/03/22 14:08 Room Air 02/03/22 13:36 Room Air 02/03/22 11:46 02/03/22 10:46 02/03/22 09:45 02/03/22 09:03 Nasal Cannula 2 02/03/22 09:16 02/03/22 09:01 02/03/22 08:43 02/03/22 08:40 02/03/22 07:40 2 02/03/22 06:40 2 02/03/22 06:10 2 02/03/22 06:47 02/03/22 06:23 Nasal Cannula 2 02/03/22 06:13 Nasal Cannula 2 02/03/22 05:55 2 02/03/22 05:38 2 02/03/22 05:00 02/03/22 04:29 02/03/22 03:30 Nasal Cannula 2 02/03/22 02:15 Nasal Cannula 2 02/03/22 02:15 Room Air 02/03/22 02:00 Room Air 02/03/22 00:53 Room Air 02/03/22 00:53 Room Air 02/03/22 00:03 Room Air Transfer of Care Handoff Completed per policy Notes Mental Status: alert / awake / arousable and participated in evaluation Patient Amnestic to Procedure: Yes Nausea / Vomiting: adequately controlled Pain: adequately controlled Airway Patency, RR, SpO2: stable & adequate BP & HR: stable & adequate Hydration State: stable & adequate Anesthetic Complications: no major complications apparent and Pt Satisfied with anesthetic care
[2022-02-03] MEDS: LACTATED RINGER'S 1,000 ML IV SCH ×3 (15:20→20:45)
--- NOTE | 2022-02-03 15:21 | Electrocardiogram Report ---
Test Reason : Blood Pressure : / mmHG Vent. Rate : 071 BPM Atrial Rate : 071 BPM P-R Int : 184 ms QRS Dur : 084 ms QT Int : 402 ms P-R-T Axes : -06 039 055 degrees QTc Int : 436 ms Normal sinus rhythm Nonspecific T wave abnormality Abnormal ECG When compared with ECG of 18-OCT-2015 14:03, Nonspecific T wave abnormality now evident in Anterolateral leads Confirmed by Aaron Hurtado ([id number]) on 02/03/2022 3:20:48 PM Referred By: REFERRED SELF Confirmed By:Aaron Hurtado
--- NOTE | 2022-02-03 19:34 | Billing Data ---
Date of Service February 03, 2022 Coding Level of Care Code 04124 Initial Inpt Care Lvl 3
[2022-02-04] MEDS: LACTATED RINGER'S 1,000 ML IV SCH ×2 (03:48→08:47)
[2022-02-04 06:22] LABS: Hematocrit (blood only) 24.5 % (40.1-51.0); Mean Corpuscular Hemoglobin 29.2 pg (25.0-34.0); Mean Corpuscular Hgb Conc 32.7 g/dL (32.0-36.0); Mean Corpuscular Volume 89.4 fL (80.0-100.0); Mean Platelet Volume 11.6 fL (9.4-12.4); Platelet Count 182 K/uL (130-400); RDW Coefficient of Variation 13.5 % (11.5-14.5); RDW Standard Deviation 43.5 fL (36.4-46.3); Red Blood Count 2.74 M/uL (4.63-6.08); White Blood Count 9.35 K/ul (4.8-10.8)
[2022-02-04 07:31] LABS: BUN Creatinine Ratio 37.1 (10-20); Calcium 8.8 mg/dl (8.5-10.1); Creatinine Clr Calc Pharmacy 58.4 ml/min; Est GFR (African American) 56.7 ml/min; Est GFR (Non-African American) 48.9 ml/min; Potassium 4.3 mmol/L (3.5-5.1)
[2022-02-04] MEDS: PANTOprazole 40 MG in SYRINGE 0 ML IV SCH (08:45)
--- NOTE | 2022-02-04 10:35 | Discharge Summary ---
Date of Service February 04, 2022 Admission HPI Per Admitting Provider Patient is a 71 yo male with PMHx of HTN, hyperlipidemia, depression, prostate cancer s/p prostatectomy, and diverticulitis who presented to the [facility] ER on 02/03/22 with complaint of dizziness and melena. Patient states that on Sunday night/Sunday morning (about 3 days ago), patient had a gradual onset of dizziness described as lightheadedness/near-syncope sensation. This symptom has been exacerbated with positional changes and standing. He has also been experiencing constipation x3 days for which he started taking Dulcolax BID. Over the past 1-2 days, he has had decreased appetite. Last night around 10:30 pm (about 2 hours prior to arrival to the ER), patient had an episode of melena. He has had multiple more episodes of melena since. Patient notes that he had a similar episode of melena several years ago but did not seek medical evaluation at that time and the melena resolved after 3-4 days. He had a colonoscopy about 5 years ago for diverticulitis; patient did not have f/u colonoscopy. He denies headache, CP, change in SOB from baseline (which he attributes to metoprolol use), abdominal pain, nausea, vomiting, leg pain, or leg swelling. Patient does chew snuff daily. Quit smoking cigarettes about 11-12 years ago; has [id number] hx. Current alcohol use; drinks 5-6 beers nightly. No hx of alcohol withdrawal; longest duration w/o alcohol is 2-3 days. In the ER, patient was found to have Hgb of 7.4. Unknown baseline Hgb but patient denies hx of chronic anemia. Patient was typed and screened; awaiting blood transfusion. No hx of prior blood transfusion. Labs were also notable for leukocytosis WBC 15.89. GINNA with Cr of 1.89. Patient denies hx of elevated Cr or CKD. Admission Exam Per Admitting Provider GENERAL: No acute distress. Well developed and well nourished. Vital signs reviewed as above. EYES: PERRLA. EOMI. Anicteric sclerae. HENT: Moist mucous membranes. No pharyngeal erythema or exudates. RESPIRATORY: Clear to auscultation bilaterally. No wheezing, rales, or rhonchi. CARDIOVASCULAR: Regular rate and rhythm. + murmur. No JVD. ABDOMEN: Soft, non-tender and non-distended. Normal bowel sounds. EXTREMITIES: No edema. Non-tender. SKIN: Warm, dry. + slight pallor. NEUROLOGIC: A/O x3. Normal speech. No focal neurological deficits. CN II-XII grossly intact. 5/5 strength in BUE and BLE. PSYCHIATRIC: Cooperative. Appropriate mood and affect. Principal Diagnosis Acute upper GI bleed Discharge Exam Constitutional: WD/WN, vitals as above No pallor today Eyes: PERRL, conjunctivae normal, anicteric sclerae ENMT: external ear and nose normal, oropharynx normal Neck: trachea midline, no thyromegaly Respiratory: normal respiratory effort, lungs clear to auscultation Cardiovascular: RRR, no murmur, no edema Gastrointestinal (Abdomen): Inspection/Auscultation: abdomen normal to inspection and normal bowel sounds; abdomen not distended Percussion/Palpation: abdomen soft; abdomen nontender Skin: no rashes, warm and dry Neurologic: PERRL, EOMI, accommodation nl, no face palsy, no dysarthria Psychiatric: A+Ox3, euthymic affect Lymphatic: no cervical or axillary lymphadenopathy Discharge Data Allergies Allergy/AdvReac Type Severity Reaction Status Date / Time No Known Allergies Allergy Unverified 02/03/22 13:35 Consultations 02/03/22 04:23 ED Decision to Admit Stat 02/03/22 06:13 Consult Gastroenterology Routine Procedures Performed Operation Date: 02/03/22 16:30 Actual Procedures p Esophagogastroduodenoscopy - Khloe Nava MD Hospital Course (1) GI bleed: Patient is a 71 yo male with PMHx of HTN, hyperlipidemia, depression, prostate cancer s/p prostatectomy, and diverticulitis admitted to [facility] on 02/03/22 with GI bleed. Acute upper gastrointestinal hemorrhage - Likely due to gastritis-induced injury from chronic alcohol and tobacco use - Hgb 7.4 on admission, 2u pRBC ordered and increase to 8.8, leveled at 8.0 on day of discharge - Endoscopy 02/03- normal esophagus, medium-sized hiatal hernia, non-bleeding gastric ulcer with no bleeding stigmata - Pt remains hemodynamically stable at time of discharge - Discharged on pantoprazole 40 mg BID x3 months per GI recommendation -Pt will also need colonoscopy as outpatient -Repeat EGD in 3 months to assess healing - Education provided to pt about importance of reducing alcohol/tobacco consumption to reduce GI bleed risk in future -Pt is open to complete alcohol cessation GINNA - Cr 1.84 on admission, improved to 1.43 on day of discharge - Suspect pre-renal secondary to hypovolemia due to GI bleed and poor oral intake - Encouraged to maintain oral hydration on discharge Alcohol use disorder - Patient drinks 5-6 beers per night - No hx of withdrawal; longest period of alcohol abstinence is 2-3 days in the past several years - Last known drink at 8:30 PM on 02/02 - Pt does not appear to be in withdrawal at time of discharge - AWSS protocol- no Ativan required during stay Hypertension - Home meds amlodipine, HCTZ, losartan, and metoprolol - Home medications held on admission Hyperlipidemia - Home medications ezetimibe and rosuvastatin - Home medications held on admission Depression - On paroxetine at home; held on admission due to possible GI side effects (2) Hypertension: (3) Hyperlipidemia: (4) Depression: (5) Full code status: (6) Lab test negative for COVID-19 virus: Total Time Total Time Spent Total Time Spent (In Minutes): <30 Discharge Plan Discharge Items Patient Disposition: Home - Self-Care Reason For Visit: GI BLEED Discharge Diagnosis: Acute gastrointestinal bleeding Activity: Resume your previous activity Non-emergency contact: Primary Care Provider and [employer] Call non-emergency contact if: you have any medication questions, your symptoms worsen, your pain is worsening and you have a fever Follow-up/Referrals: Aron Webber DO [Primary Care Provider] - Diet: Regular Addtl Attending Provider Instructions: You were admitted to the hospital for GI bleeding. This was likely caused by chronic inflammation/injury to the lining of your stomach from alcohol and tobacco use, which caused ulcer formation. You were given a blood transfusion to help your hemoglobin level recover to stable levels. Thankfully your hemoglobin stabilized and the endoscopy performed by the GI team did not find any active bleeding. You will need a colonoscopy as an outpatient which you should discuss with your PCP and GI would like to repeat the endoscopy in 3 months to assess for healing of the ulcer. A discharge summary will be sent to your primary care physician to ensure continuity of care. Please bring this discharge summary with you to your next office appointment so that your provider can review it at that time. Follow-up appointments: Make a follow-up appointment with your PCP within the next week. It is very important that you follow up with them shortly after discharge from the hospital. Medications: Your medication list has been reviewed and reconciled upon discharge to ensure accuracy and continuity of care. An updated list of all your medications is included with your hospital discharge paperwork. Please review this list closely, and make note of any changes. We sent a new medication called pantoprazole to the pharmacy. This is a medication that protects your stomach lining in the aftermath of a recent bleed. You will take this medication twice daily for 3 months. Take your medications as instructed; do not skip a dose of your medicines. Make sure all of your doctors know every medicine you are taking (including [id number]-[id number] medicines, vitamins, and supplements). Call your primary care provider before taking any new medicines (including xoqz-gly-nrexiys medicines, vitamins, and supplements), because some of these may interact with your current medications, or may make your symptoms worse. Tell your primary care provider if you cannot afford your medications. CONTACT YOUR PRIMARY CARE PROVIDER if you experience any of the following: Abdominal pain Dark stool Bright bloody stool Nausea Vomiting Fatigue Difficulty following your treatment plan, or difficulty taking medications CALL 911 OR GO TO THE EMERGENCY DEPARTMENT if you experience any of the following: Sudden, severe abdominal pain or nausea/vomiting Severe chest pain, or chest pain that radiates (moves) to your jaw or arm Sudden, severe shortness of breath or difficulty breathing Thank you for allowing us to participate in your care. Pending Studies at Discharge: No Stand-Alone Forms: [facility], Sm[facility] Cessation Medications and DC Order Prescriptions: New pantoprazole 40 mg tablet,delayed release (DR/EC) 40 mg PO BID 30 Days Qty: 60 3RF Continued LOSARTAN POTASSIUM (COZAAR) 100 MG tablet 100 mg PO QAM Qty: 0 PAROXETINE HCL (PAXIL) 20 MG tablet 20 mg PO QAM Qty: 0 Metoprolol Succ (Toprol Xl) (Toprol-Xl) 25 MG [id number] 100 mg PO BID Qty: 30 Docusate Sodium capsule 50 mg PO BID PRN (Reason: Constipation) amlodipine 10 mg tablet 10 mg PO DAILY ezetimibe 10 mg tablet 10 mg PO DAILY rosuvastatin 20 mg tablet 20 mg PO DAILY hydrochlorothiazide 12.5 mg tablet 12.5 mg PO DAILY Discharge Orders: Discharge Order (Routine); Ordered 02/04/22 Ordered By: Jose L Loera Admission Data Admit Date/Time: 02/03/22 04:30 Attending Provider: Pipe Soto Admit Provider: Mercedes Segura Primary Care Provider: Aron Webber Other Providers: Iker Jackson ; Ravinder Yun Other Interventions: Discharge Summary Assessment (RN) Last Done: 02/04/22 11:01 Supervising Physician Co-Signing Physician Notes I personally examined the patient and verified all cain points of history and exam, discussed case, and agree with decision making with Dr Loera. Sleeping whenever I first see him, is in the bathroom on every subsequent visit I tried to see him. Appears comfortable. Vitals noted, in general he is awake and alert pleasant no distress. HEENT normocephalic atraumatic mucous membranes moist. Breathing unlabored no accessory muscle use good effort. Skin shows no rashes no pallor or icterus. Neuro without focal deficits at rest Peptic ulcer disease with acute blood loss anemia and subsequent acute renal insufficiencyoverall now more stable, is status post 2 units packed red blood cells for his hemoglobin, GINNA improving. Plans to stop drinkingfortunately showing no signs of withdrawaltherefore unlikely to occur. Safe for home. Twice daily PPI, alcohol cessation (return if any problems) tobacco cessation if at all possible. No NSAIDs. Otherwise as above Resident Activity Tracking Resident Involvement: Resident Care Provided Care Provided: Adult Hospital Medicine
--- NOTE | 2022-02-04 16:20 | Billing Data ---
Date of Service February 04, 2022 Coding Level of Care Code D/C DAY MANAGEMENT <30 MINS
== END 2022-02-04 12:00 | disposition home or self-care (01) | DRG 378 ==
LOC: ED 23:50 → 2S 02-03 04:30 → SUATTDRO 02-03 04:30 → 2S 02-03 05:58